=== PATIENT | female | born 1960 | race Asian ===

== ENCOUNTER 2017-02-13 21:11 | Emergency (ER) | payer SELFPAY ==
[~2017-02-13] VITALS: Ht 165.1 cm; Wt 61.2 kg
[~2017-02-13 21:11] MED LIST: LORA2TAB PO
[2017-02-13 21:17] VITALS: BP 103/66
== END 2017-02-13 21:33 | disposition home or self-care (01) ==
LOC: ER 21:13
DX: J02.9 Acute pharyngitis, unspecified (principal)
CPT/HCPCS: A4606; Z7610